=== PATIENT | female | born 1995 | race Caucasian/White ===

== ENCOUNTER 2019-11-30 11:48 | Emergency (ER) | payer OTHER ==
[~2019-11-30] VITALS: Ht 154.9 cm; Wt 59.0 kg
[2019-11-30] MEDS: ALBUTEROL/IPRATROPIUM 3 ML NEB NEB ONE (12:40)
[2019-11-30] MEDS: PREDNISONE 20 MG TAB PO ONE (12:42)
--- NOTE | 2019-11-30 12:46 | Diagnostic Imaging Report ---
EXAMINATION: PA and lateral views of the chest. COMPARISON: None CLINICAL HISTORY: Cough, shortness of breath DISCUSSION: Lines/tubes: None. Lungs: The lungs are well inflated and clear. There is no evidence of pneumonia or pulmonary edema. Pleura: There is no pleural effusion or pneumothorax. Heart and mediastinum: Cardiomediastinal silhouette is unremarkable. Pulmonary vasculature is normal. Bones and soft tissues: No acute bony abnormalities. IMPRESSION: No acute cardiopulmonary abnormalities. Signed by: Dr. Giuliano Hansen M.D. on 11/30/2019 12:43 PM
[2019-11-30 13:21] VITALS: BP 107/72
== END 2019-11-30 13:30 | disposition home or self-care (01) ==
LOC: ER 11:48
DX: R06.00 Dyspnea, unspecified (principal); R05 Cough; J20.9 Acute bronchitis, unspecified; Z87.01 Personal history of pneumonia (recurrent); F17.290 Nicotine dependence, other tobacco product, uncomplicated
CPT/HCPCS: 71046; 99283; J7512

== ENCOUNTER 2020-05-24 09:36 | Inpatient (IN) | payer OTHER ==
[~2020-05-24] VITALS: Ht 154.9 cm; Wt 68.0 kg
[2020-05-24] MEDS ORDERED: METHYLPREDNISOLONE SOD SUCC 125 MG/2ML VIAL IV STA (09:37)
[2020-05-24] MEDS ORDERED: SODIUM CHLORIDE 0.9% 1000ML 1,000 ML IV STA ×3 (09:37→18:09)
--- OUTSIDE RECORDS SUMMARY | 2020-05-24 09:42 | XMS REPORT | Continuity of Care Document ---
Author Author [facility] [place] [place] Organization [facility] [place] [place] Address [address] [place] [address] 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 Allergies, Adverse Reactions, Alerts This patient has no known allergies or adverse reactions. Medications This patient has no known medications. Procedures Procedure Date / Time Performed Performing Clinician [facility] e X-ray of chest, two views 2019-11-30 00:00:00 LUIS A PALENCIA CH I [facility] Encounters Start Date/Time End Date/Time Encounter Type Admission Type Attendi [facility] Facility Care Department Encounter ID Source 2019-11-30 11:48:00 2019-11-30 13:30:00 Departed Emergency Room 1 LUIS A PALENCIA [facility] [id number] [facility] Results Test Description Test Time Test Comments Results Result Comments Source CHEST 2 VIEWS 2019-11-30 12:41:00 [facility] [address] [place], [place] [address] Patient Name: GERARDO AGUILAR MR #: [id number] : 1995 Age/Sex: 24/F Req #: [id number] Adm Physician: Ordered by: LUIS A PALENCIA MD Report #: [id number] Location: ER Room/Bed: Procedure: [id number] DX/CHEST 2 VIEWS Exam Date: Exam Time: REPORT STATUS: Signed EXAMINATION: PA and lateral views of the chest. COMPARISON: None CLINICAL HISTORY: Cough, shortness of breath DISCUSSION: Lines/tubes: None. Lungs: The lungs are well inflated and clear. There is no evidence of pneumonia or pulmonary edema. Pleura: There is no pleural effusion or pneumothorax. Heart and mediastinum: Cardiomediastinal silhouette is unremarkable. Pulmonary vasculature is normal. Bones and soft tissues: No acute bony abnormalities. IMPRESSION: No acute cardiopulmonary abnormalities. Signed by: Dr. Apolinar Hansen M.D. on 11/30/2019 12:43 PM Dictated By: APOLINAR HANSEN MD [id number] Transcribed By: JULIANNA on 11/30/19 1243 COPY TO: LUIS A PALENCIA MD
[2020-05-24] MEDS ORDERED: ALBUTEROL/IPRATROPIUM 3 ML NEB NEB ONE (09:45)
[2020-05-24 10:12] LABS: BASOPHILS # (AUTO) 0.1 (0.0-0.1); BASOPHILS % 0.3 % (0.0-1.0); EOSINOPHILS # (AUTO) 9.1 (0.0-0.4); EOSINOPHILS % 31.1 % (0.0-6.0); HEMOGLOBIN 14.6 g/dL (12.0-16.0); LYMPHOCYTES # (AUTO) 1.4 (1.0-3.2); LYMPHOCYTES % 4.6 % (18.0-39.1); MEAN CORPUSCULAR HEMOGLOBIN 31.1 pg (28-32); MEAN CORPUSCULAR VOLUME 91.5 fL (81-99); MONOCYTES # (AUTO) 1.1 (0.2-0.8); MONOCYTES % 3.9 % (4.4-11.3); NEUTROPHILS # (AUTO) 17.5 (2.1-6.9); NEUTROPHILS % 59.6 % (38.7-80.0); PLATELET COUNT 355 x10e3/uL (140-360); RED CELL DISTRIBUTION WIDTH 12.9 % (11.7-14.4)
--- NOTE | 2020-05-24 10:24 | Emergency Department Note ---
History of Present Illnes History of Present Illness Chief Complaint: COVID PUI History of Present Illness This is a 24 year old female SOB AND COUGHING SINCE YESTERDAY. SEEN YESTERDAY AT URGENT CARE AND GIVEN PREDNISONE AND INHALER. PT STATES GETTING WORSE. PT AAOX4. AMBULATORY. SMOKER 1/2 PER WK. PT DENIES COVID TESTING. Historian: Patient, Family Member Arrival Mode: Car Lye Treater Required: No Onset (how long ago): day(s) (1) Radiation: Reports non-radiation Severity: moderate Onset quality: gradual Timing of current episode: constant Progression: worsening Chronicity: recurrent Context: Denies recent illness Relieving factors: none Exacerbating factors: none Associated symptoms: Reports denies other symptoms Treatments prior to arrival: none Past Medical/Family History Physician Review I have reviewed the patient's past medical and family history. Any updates have been documented here. Past Medical History Recent Fever: No Clinical Suspicion of Infectio: Yes New/Unexplained Change in Ment: No Past Medical History: Asthma Other Medical History: G-2, P-1, A-0 pneumonia Past Surgical History: None Social History Smoking Cessation: Current some day smoker Counseling Performed: Yes Alcohol Use: None Any Illegal Drug Use: No TB Exposure/Symptoms: No Physically hurt or threatened: No Family History Family history of heart diseas: No Other Last Tetanus: UNK Any Pre-Existing Lines (PICC,: No Review of Systems Review of Systems Constitutional: Reports no symptoms EENTM: Reports no symptoms Cardiovascular: Reports no symptoms Respiratory: Reports as per HPI, Reports chest congestion, Reports cough, Reports dyspnea Gastrointestinal: Reports no symptoms Genitourinary: Reports no symptoms Musculoskeletal: Reports no symptoms Integumentary: Reports no symptoms Neurological: Reports no symptoms Psychological: Reports no symptoms Endocrine: Reports no symptoms Hematological/Lymphatic: Reports no symptoms Physical Exam Related Data Allergies: Coded Allergies: No Known Allergies (Unverified , 03/08/13) Triage Vital Signs Vital Signs Date Time Temp Pulse Resp B/P (MAP) Pulse Ox O2 Delivery O2 Flow Rate FiO2 05/24/20 09:35 96 23 96 05/24/20 09:37 97.2 127/77 Room Air 05/24/20 10:04 2.0 Vital signs reviewed: Yes Physical Exam CONSTITUTIONAL Constitutional: Present well-developed, Present well-nourished, Present distressed HENT HENT: Present normocephalic, Present atraumatic, Present oropharynx clear/moist, Present nose normal HENT L/R: Present left ext ear normal, Present right ext ear normal EYES Eyes: Reports PERRL, Reports conjunctivae normal NECK Neck: Present ROM normal PULMONARY Pulmonary: Present respiratory distress (MILD, WITH TACHYPNEA AND INCREASED WORK OF BREATHING), Present other (BILATERAL DIFFUSE EXP WHEEZES); Absent chest tenderness CARDIOVASCULAR Cardiovascular: Present regular rhythm, Present heart sounds normal, Present capillary refill normal, Present normal rate GASTROINTESTINAL Abdominal: Present soft, Present nontender, Present bowel sounds normal GENITOURINARY Genitourinary: Present exam deferred SKIN Skin: Present warm, Present dry MUSCULOSKELETAL Musculoskeletal: Present ROM normal; Absent edema NEUROLOGICAL Neurological: Present alert, Present oriented x 3, Present no gross motor or sensory deficits PSYCHOLOGICAL Psychological: Present mood/affect normal, Present judgement normal Results Laboratory Result Diagram: 05/24/20 0956 Laboratory Laboratory Tests Test 05/24/20 09:56 White Blood Count 29.34 x10e3/uL (4.8-10.8) Red Blood Count 4.70 x10e6/uL (3.6-5.1) Hemoglobin 14.6 g/dL (12.0-16.0) Hematocrit 43.0 % (34.2-44.1) Mean Corpuscular Volume 91.5 fL (81-99) Mean Corpuscular Hemoglobin 31.1 pg (28-32) Mean Corpuscular Hemoglobin Concent 34.0 g/dL (31-35) Red Cell Distribution Width 12.9 % (11.7-14.4) Platelet Count 355 x10e3/uL (140-360) Neutrophils (%) (Auto) 59.6 % (38.7-80.0) Lymphocytes (%) (Auto) 4.6 % (18.0-39.1) Monocytes (%) (Auto) 3.9 % (4.4-11.3) Eosinophils (%) (Auto) 31.1 % (0.0-6.0) Basophils (%) (Auto) 0.3 % (0.0-1.0) Neutrophils # (Auto) 17.5 (2.1-6.9) Lymphocytes # (Auto) 1.4 (1.0-3.2) Monocytes # (Auto) 1.1 (0.2-0.8) Eosinophils # (Auto) 9.1 (0.0-0.4) Basophils # (Auto) 0.1 (0.0-0.1) Absolute Immature Granulocyte (auto 0.16 x10e3/uL (0-0.1) Lab results reviewed: Yes Imaging Imaging results reviewed: Yes Critical Care Time Total Critical Care Time (min): 30 Critcal care necessary due to: respiratory failure Critcal care time spent by me: discussion w primary provider, order/perform tx or interventions, order/review laboratory studies, order/review radiographic studies, pulse oximetry, re-evaluation of patient condition Assessment & Plan Medical Decision Making MDM 24 Y/O FEMALE WITH H/O ASTHMA, SOB/COUGH SINCE YESTERDAY, MILD RESP DISTRESS AND DIFFUSE WHEEZING - CBC, CHEM, CARDIACS, PREG TEST, BLOOD CX'S, LACTIC, CXR, COVID SWAB - EVAL FOR PNEUMONIA, BRONCHITIS, ASTHMA EXACERBATION, SEPSIS. Reassessment Reassessment WBC ALMOST 30K @ 1020 - IV ABX'S ORDERED, ROCEPHIN & AZITHRO, LACTIC PENDING LAB CALLED - INITIAL LACTIC HIGH BUT HEMOLYZED - WE SENT REPEAT AND IT WAS 3.1 BUT ALSO HAD SLIGHT HEMOLYSIS LIKELY SOURCE LUNGS - BRONCHITIS VS EARLY PNEUMONIA 2 L NS BOLUS, IV ABX'S AND REPEAT LACTIC 2 SIRS CRITERIA OF WBC>12K AND RESP RATE >20 Assessment & Plan Final Impression: (1) Sepsis (2) Leukocytosis (3) Bronchitis (4) Asthma exacerbation Depart Disposition: ADMITTED Last Vital Signs Date Time Temp Pulse Resp B/P (MAP) Pulse Ox O2 Delivery O2 Flow Rate FiO2 05/24/20 10:04 120 24 100 Nasal Cannula 2.0 05/24/20 09:37 97.2 Home Meds No Active Prescriptions or Reported Meds Medications in the ED Methylprednisolone Sodium Succinate 125 mg ONCE STAT IV Last administered on 05/24/20at 10:18; Admin Dose 125 MG; Start 05/24/20 at 09:37; Stop 05/24/20 at 09 :41; Status DC Sodium Chloride 1,000 ml @ 0 mls/hr Q0M STAT IV Last administered on 05/24/20at 10:18; Admin Dose 1,000 MLS/HR; Start 05/24/20 at 09:37; Stop 05/24/20 at 09:41; Status DC Albuterol/ Ipratropium 6 ml ONCE ONCE NEB Last administered on 05/24/20at 09:35; Admin Dose 6 ML; Start 05/24/20 at 09:45; Stop 05/24/20 at 09:46; Status DC LUIS A PALENCIA MD May 24, 2020 10:24
[2020-05-24] MEDS ORDERED: CEFTRIAXONE SOD 1 GM/NS 50 ML 50 ML IV SCH (10:30)
[2020-05-24] MEDS ORDERED: AZITHROMYCIN 500MG/NS 250 ML 250 ML IV SCH (10:30)
[2020-05-24 10:33] LABS: ALANINE AMINOTRANSFERASE 55 IU/L (0-55); ALBUMIN 4.6 g/dL (3.5-5.0); ALBUMIN/GLOBULIN RATIO 1.6 (0.8-2.0); ALKALINE PHOSPHATASE 85 IU/L (40-150); ANION GAP 19.7 mmol/L (8-16); BLOOD UREA NITROGEN 19 mg/dL (7-26); BUN/CREATININE RATIO 24 (6-25); CALCIUM 9.2 mg/dL (8.4-10.2); CARBON DIOXIDE 15 mmol/L (22-29); CHLORIDE 108 mmol/L (98-107); CREATINE KINASE 104 IU/L (29-168); CREATININE, SERUM 0.78 mg/dL (0.57-1.11); EST GLOMERULAR FILTRATION RATE > 60 ML/MIN (60-); GLUCOSE 112 mg/dL (74-118); POTASSIUM 3.7 mmol/L (3.5-5.1); SODIUM 139 mmol/L (136-145)
--- NOTE | 2020-05-24 10:41 | NUR ---
LACTIC RE-DRAWN D/T "GROSS HEMOLYZATION" PER LAB. NO OTHER LABS HEMOLYZED AT ALL PER LAB...
[2020-05-24 10:44] LABS: INR 0.94; PARTIAL THROMBOPLASTIN TIME 31.8 seconds (23.8-35.5)
--- NOTE | 2020-05-24 10:45 | NUR ---
Lactic acid redrawn at this time
--- NOTE | 2020-05-24 11:01 | NUR ---
Dr. Lagunas made aware that patient became short of breath when she got up to go to the bathroom
[2020-05-24 11:11] LABS: CLARITY,URINE SL CLOUDY (CLEAR); COLOR,URINE YELLOW (YELLOW)
[2020-05-24 11:12] LABS: BILIRUBIN,URINE NEGATIVE (NEGATIVE); KETONES,URINE NEGATIVE (NEGATIVE); LEUKOCYTE ESTERASE ,URINE NEGATIVE (NEGATIVE); NITRITE,URINE NEGATIVE (NEGATIVE); PROTEIN,URINE DIPSTICK NEGATIVE (NEGATIVE); URINE UROBILINOGEN 0.2 mg/dL (0.2 - 1)
--- NOTE | 2020-05-24 11:25 | Diagnostic Imaging Report ---
EXAMINATION: CHEST SINGLE (PORTABLE) INDICATION: COUGH, SOB, ASTHMA COMPARISON: Chest x-ray dated 11/30/2019. FINDINGS: AP view TUBES and LINES: None. . LUNGS/PLEURA: Lungs are well inflated. There is no evidence of pneumonia or pulmonary edema.. There is no pleural effusion or pneumothorax. HEART AND MEDIASTINUM: The cardiomediastinal silhouette is unremarkable. BONES AND SOFT TISSUES: No acute osseous lesion. Soft tissues are unremarkable. UPPER ABDOMEN: No free air under the diaphragm. IMPRESSION: No acute thoracic abnormality. Signed by: Yonathan Osei MD on 05/24/2020 11:21 AM
[2020-05-24] MEDS ORDERED: ALBUTEROL/IPRATROPIUM 3 ML NEB NEB PRN (11:30)
[2020-05-24] MEDS ORDERED: SODIUM CHLORIDE 0.9% 1000ML 1,000 ML IV SCH (11:30)
[2020-05-24] MEDS: ALBUTEROL SULF 0.083% NEB SOLN 3 ML NEB NEB SCH ×2 (11:45→14:15)
[2020-05-24 11:49] LABS: BACTERIA,URINE RARE /HPF; EPITHELIAL CELLS,URINE FEW /LPF; RBC,URINE 0-5 /HPF (0-5); WBC,URINE (MAN) 0-5 /HPF (0-5)
[2020-05-24] MEDS ORDERED: PROAIR HFA INH8.5 GM INH (12:51)
[2020-05-24] MEDS ORDERED: SYMBICORT 16010.2 GM INH (12:51)
[2020-05-24 12:55] VITALS: BP 120/64
[2020-05-24] MEDS ORDERED: IPRATROPIUM BROMIDE 0.02% 2.5 ML NEB NEB SCH (13:00)
[2020-05-24 13:02] VITALS: BP 120/64
[2020-05-24] MEDS ORDERED: METHYLPREDNISOLO4 M1 PO (13:20)
[2020-05-24] MEDS ORDERED: DOCUSATE SODIUM 100 MG CAP PO PRN (14:15)
[2020-05-24] MEDS ORDERED: TRAMADOL HCL 50 MG TAB PO PRN ×2 (14:15→16:30)
[2020-05-24 16:00] VITALS: BP 114/59
[2020-05-24] MEDS ORDERED: GUAIFENESIN/CODEINE 10 ML CUP PO PRN (16:15)
[2020-05-24] MEDS ORDERED: BENZONATATE 100 MG CAP PO PRN (16:15)
[2020-05-24] MEDS: METHYLPREDNISOLONE SOD SUCC 40 MG/ML VIAL 1ML IV SCH ×2 (16:22→22:41)
[2020-05-24 16:44] LABS: BASOPHILS % 0.2 % (0.0-1.0); HEMATOCRIT 39.2 % (34.2-44.1); HEMOGLOBIN 12.8 g/dL (12.0-16.0); LYMPHOCYTES # (AUTO) 0.3 (1.0-3.2); LYMPHOCYTES % 1.1 % (18.0-39.1); MEAN CORPUSCULAR HEMOGLOBIN 30.8 pg (28-32); MEAN CORPUSCULAR HGB CONC 32.7 g/dL (31-35); MONOCYTES # (AUTO) 0.1 (0.2-0.8); MONOCYTES % 0.3 % (4.4-11.3); NEUTROPHILS # (AUTO) 22.5 (2.1-6.9); NEUTROPHILS % 97.8 % (38.7-80.0); RED BLOOD COUNT 4.15 x10e6/uL (3.6-5.1); RED CELL DISTRIBUTION WIDTH 13.1 % (11.7-14.4)
[2020-05-24 16:46] LABS: MEAN CORPUSCULAR VOLUME 94.5 fL (81-99); PLATELET COUNT 322 x10e3/uL (140-360)
[2020-05-24] MEDS ORDERED: FAMOTIDINE 20 MG/2 ML VIAL IV SCH (17:00)
[2020-05-24] MEDS ORDERED: ENOXAPARIN SOD INJ 40 MG/0.4 ML SYR SC SCH (17:00)
[2020-05-24 17:05] LABS: ALANINE AMINOTRANSFERASE 47 IU/L (0-55); ALBUMIN 4.3 g/dL (3.5-5.0); ALBUMIN/GLOBULIN RATIO 1.9 (0.8-2.0); ALKALINE PHOSPHATASE 75 IU/L (40-150); ANION GAP 17.8 mmol/L (8-16); BLOOD UREA NITROGEN 11 mg/dL (7-26); BUN/CREATININE RATIO 15 (6-25); CALCIUM 8.4 mg/dL (8.4-10.2); CARBON DIOXIDE 15 mmol/L (22-29); CHLORIDE 113 mmol/L (98-107); CREATININE, SERUM 0.75 mg/dL (0.57-1.11); EST GLOMERULAR FILTRATION RATE > 60 ML/MIN (60-); GLUCOSE 139 mg/dL (74-118); POTASSIUM 3.8 mmol/L (3.5-5.1); SODIUM 142 mmol/L (136-145)
--- NOTE | 2020-05-24 18:21 | Consultation ---
DATE OF CONSULTATION: Pulmonary Critical Care Consultation CHIEF COMPLAINT: Wheezing and cough. HISTORY OF PRESENT ILLNESS: The patient is a 24-year-old woman. She has a history of recurrent asthma-like problems. She was previously on Symbicort, but recently has just been using a rescue inhaler. She reports difficulty breathing with cough and wheezing over several days. She has no fevers. She has no sinus congestion. She has no nausea or vomiting. The patient came to the hospital. She received some Solu-Medrol along with oxygen and bronchodilators, and she feels better. The emergency department was concerned because of her elevated white blood cell count of 29. PAST MEDICAL HISTORY: Asthma-like syndrome as noted above. PAST SURGICAL HISTORY: Noncontributory. ALLERGIES: NO KNOWN DRUG ALLERGIES. SOCIAL HISTORY: The patient smokes about half a pack of cigarettes a week. She is an occasional drinker couple times a week. REVIEW OF SYSTEMS: The patient denies any fever. She has no headache. There is no sinus congestion. She has no neck pain. She has no sore throat. She had some coughing and some wheezing, although this has improved. She has no chest pain. She has no nausea or vomiting. She has no leg edema. PHYSICAL EXAMINATION: VITAL SIGNS: The blood pressure is now 122/77 and the pulse is 90 to 100. Respiratory rate is normal and the saturation is 98% on 2 L. HEENT: Shows no facial swelling or erythema. LYMPHATIC: Shows no submandibular, cervical, or supraclavicular adenopathy. Oropharynx is normal. CARDIAC: Reveals regular rate and rhythm with normal S1 and S2. LUNGS: Auscultation of lungs reveals wheezing bilaterally. There is a prolonged expiratory phase. ABDOMEN: Soft and nontender. There is no rebound or guarding. EXTREMITIES: Show no leg edema or calf tenderness. There is no cyanosis or clubbing. SKIN: Shows no rashes. NEUROLOGICAL: Shows no focal abnormalities. LABORATORY DATA: Carbon dioxide is 15 with a sodium of 139, a potassium of 3.7 and a chloride of 108. Anion gap is 19. Lactic acid is mildly elevated at 3.1. White blood cell count was 29.3 and the hemoglobin is 14.6. The platelet count is 355. RADIOGRAPHIC DATA: Chest x-ray shows no active disease. IMPRESSION: 1. Asthma with acute exacerbation. 2. Leukocytosis of unclear etiology. 3. Metabolic acidosis. PLAN: 1. Repeat CBC and CMP now. Hopefully, the leukocytosis has improved. 2. Continue Solu-Medrol for now. If the patient goes home, she should be on a steroid taper. 3. The patient can be discharged home. She should have a maintenance inhaler such as Symbicort or another inhaled corticosteroid twice a day. 4. The patient should use the nebulizers or albuterol rescue inhaler as needed. 5. Control gastroesophageal reflux, which could be worsening asthma-like symptoms. Kameron Randhawa MD [facility] /[id number]
[2020-05-24 18:48] LABS: LYMPHOCYTES % (MANUAL) 2 % (19-48); NEUTROPHILS % (MANUAL) 98 % (40-74); PLATELET ESTIMATE ADEQUATE; PLATELET MORPHOLOGY COMMENT NORMAL
[2020-05-24 18:49] LABS: RBC MORPHOLOGY COMMENT NORMAL
--- NOTE | 2020-05-24 19:19 | NUR ---
BEDSIDE SHIFT REPORT GIVEN TO ONCOMING NURSE. PATIENT IS RESTING IN BED, NO ACUTE DISTRESS NOTED. CALL LIGHT WITHIN REACH. BED IN THE LOWEST POSITION. NIGHT NURSE NOTIFIED THAT LACTIC ACID NEEDS TO BE DRAWN AT [address] IKNG WITH RESULTS.
[2020-05-24 20:00] VITALS: BP 120/69
[2020-05-24] MEDS ORDERED: METHYLPREDNISOLONE SOD SUCC 40 MG/ML VIAL 1ML IV SCH ×2 (21:00)
[2020-05-24] MEDS ORDERED: MELATONIN 5 MG TABLET PO PRN (21:00)
--- NOTE | 2020-05-24 22:52 | History and Physical ---
CHIEF COMPLAINT: Shortness of breath. HISTORY OF PRESENT ILLNESS: This is a 24-year-old female, chronic smoker, who has been smoking for more than 14 years, two packs per day, recently started gone to half-a-pack a day for the last six months, reports has a history of asthma, comes into the ED with complaints of shortness of breath, cough, and congestion. The patient apparently had these symptoms that began yesterday morning when she woke up and she went to a local urgent care, was given some steroids and some antibiotics and discharged home. The patient was given hydrocortisone injection at the Urgent Care. The patient went home and progressively got worse, came into [facility] ER for further evaluation and management. While here, the patient was tachypneic, short of breath and is currently on nasal cannula. The patient was given some steroids and found to have a white count of 29, and started on antibiotics as well. The patient seen and evaluated at bedside on the medical floor with the nursing staff. Currently, she is doing well with no other issues at this time. REVIEW OF SYSTEMS: Pertinent positive; shortness of breath, cough, congestion, and wheezing. The rest of 14-point review of systems have been reviewed with the patient and are negative. ALLERGIES: NO KNOWN DRUG ALLERGIES. HOME MEDICATIONS: Takes Symbicort and albuterol. PAST MEDICAL HISTORY: Asthma. PAST SURGICAL HISTORY: Reports none. FAMILY HISTORY: Hypertension and diabetes. SOCIAL HISTORY: She used to be a smoker, two packs per day for the last six months. Now, she is half-a-pack a day. No drugs or any alcohol. Has children. She works. PHYSICAL EXAMINATION: VITAL SIGNS: Temperature is 98.1, pulse is 114, respiratory rate 22, pulse ox is 96%. She is on 2 L nasal cannula, blood pressure was 127/77. GENERAL: In not in acute distress. Alert and oriented x3. She is cooperative on examination. HEENT: Normocephalic, atraumatic. Eyes; pupils are reactive to light bilaterally. Extraocular movements are intact bilaterally. PULMONARY: She has expiratory wheezing appreciated. She has decreased inspiratory effort. There is no crackles, no rhonchi. CARDIOVASCULAR: Positive S1, S2. No murmurs, rubs, or gallops appreciated. ABDOMEN: Soft, nondistended, nontender to palpation. Bowel sounds present. MUSCULOSKELETAL: Strength 5/5 throughout. . No evidence of muscle deficits on examination. No weakness appreciated. NEUROLOGICAL: Cranial nerves II through XII grossly intact. No evidence of any neurological deficits on exam. SKIN: Intact. Warm to touch. Good cap refill. PSYCHIATRIC: Normal affect and mood. EXTREMITIES: No edema. Good range of motion throughout. LABORATORY DATA: Labs show white count 29, hemoglobin is 14, hematocrit is 43, platelets of 355. Coagulation; PT 13, INR 0.94, PTT 31. Chemistry; sodium 139, potassium 3.7, chloride 108, bicarb is 15, anion gap of 19, BUN is 19 and creatinine 0.78, glucose is 112, lactic acid 3.1, calcium is 9.2. LFTs within normal range. Troponins were negative. BNP is 18, albumin is 4.6. Beta hCG was negative. Urinalysis negative. Serology; coronavirus not detected. Microbiology; blood and urine cultures are pending. IMAGING STUDIES: Chest x-ray shows no acute thoracic abnormality. IMPRESSION: 1. Asthma exacerbation. 2. Chronic smoker. 3. Wheezing with underlying shortness of breath. PLAN: At this time, the patient will be on IV steroids of 40 mg IV q.8, nebulizing treatments including inhalers. I did consult with Pulmonary as well. Continue with IV antibiotic therapy. She will be on a heart healthy diet. Lovenox for DVT prophylaxis. The patient is not ready for discharge at this time despite I did talk with her that she will need several days. She reports that she may leave against medical advice, which I do not recommend at all due to her underlying wheezing and her underlying shortness of breath. There are blood and urine cultures collected and she is on IV antibiotic therapy, which we will continue to monitor very closely. Discussed plan of care with the patient and nursing staff. MD REILLY Prajapati/MELISSA /[id number]
[2020-05-25] VITALS: BP 116/65
--- NOTE | 2020-05-25 | NUR ---
Patient voiced that she wants to leave the hospital to take care of some famly responsibilities. Patient was educated on the risks of leaving the hospital without medical clearance. patient verbalized understanding. Another RN Bety was present to reinforced and witness the education of the importance of patient staying to complete medical treatment and the risks involved in leaving against medical advise. Dr. Duarte was made aware, iv access was removed and patient left unit at 0018. Vitals was stable, patient was not in acute distress and patient was encourage to call 911 if condition changes. corduroy cutting supervisor was made aware.
--- NOTE | 2020-05-26 10:34 | Discharge Summary ---
The patient left against medical advice. FINAL DISCHARGE DIAGNOSES: 1. Acute asthma exacerbation. 2. Chronic smoker. 3. Wheezing with underlying shortness of breath. 4. Leukocytosis. DB2 DEVELOPER: Pulmonary. VITAL SIGNS: Temperature is 98.4, pulse 99, respiratory rate is 19, blood pressure 116/56, and pulse ox 98% on room air. LABORATORY DATA: Labs show white count 22, hemoglobin 12, hematocrit is 39, and platelets of 322. Chemistry; sodium 142, potassium is 3.8, chloride 113, bicarb 15, anion gap of 17, creatinine is 0.75, BUN 11, glucose 139. Lactic acid 2.3. LFTs within normal range. Troponin was negative. BNP 18. Albumin is 4.3. Beta-hCG negative. Urinalysis negative. Coronavirus not detected. MICROBIOLOGY: Blood cultures and urine cultures collected. IMAGING STUDIES: Chest x-ray, no acute findings. HOSPITAL COURSE: A 24-year-old female, came into the ED with complaints of shortness of breath and was being treated for underlying asthma exacerbation. The patient was recently seen at the Urgent Care, but due to worsening symptoms, she came into the [facility] ER for further evaluation and management. While here, the patient was given steroids, neb treatments, antibiotics. The patient left against medical advice on the day of admission. The patient was found to have lactic acidosis and concerning for underlying sepsis. She was having some wheezing and rhonchi on examination, but she still continues to refuse and wants to be discharged. The patient was alert, awake, and oriented x4 with no complications. In fact, the nursing staff also spoke with the patient and she verbalized that she wants to leave. The patient left against medical advice. She signed appropriate documentation for discharge. Risks were discussed with the patient at bedside and despite that, she still understood and she wants to leave against medical advice. On the day of discharge, vital signs were stable, labs reviewed and stable. The patient is seen and evaluated and examined thoroughly on the day of discharge with no other complaints. The patient verbalized understanding and agrees to plan of care to come back to the ER for any worsening issues. MEDICATIONS: See med reconciliation form. DISPOSITION: Left against medical advice. CONDITION: Left against medical advice. In the event of any worsening symptoms, the patient was advised to come back to the ED for further evaluation. Once again, the patient left against medical advice despite we discussed the risks involved in leaving against medical advice. Despite all that, she still wants to go home. She signed appropriate documentation. The patient left against medical advice. MD REILLY Prajapati/MELISSA /[id number]
== END 2020-05-25 01:01 | disposition left against medical advice (07) | DRG 872 ==
LOC: ER 09:40 → ERHOLD 11:33 → MED/SURG3 12:23
PROVIDERS: ADMIT Internal Medicine; ATTEND Internal Medicine
DX: A41.9 Sepsis, unspecified organism (principal); J45.901 Unspecified asthma with (acute) exacerbation; E87.2 Acidosis; F17.210 Nicotine dependence, cigarettes, uncomplicated; Z11.59 Encounter for screening for other viral diseases
CPT/HCPCS: 36415; 71045; 80053; 81001; 82550; 82553; 83605; 83880; 84484; 84702; 85025; 85610; 85730; 87040; 87086; 94640; 99284; J0456; J0696; J1650; J2920; J2930; J7030; U0002

== ENCOUNTER 2024-03-16 11:39 | Emergency (ER) | payer OTHER ==
[~2024-03-16] VITALS: Ht 154.9 cm; Wt 72.6 kg
[~2024-03-16 11:39] MED LIST: METHYLPREDNISOLO4 M1 PO; PROAIR HFA INH8.5 GM INH; SYMBICORT 16010.2 GM INH
[2024-03-16 11:43] VITALS: TEMP 99
[2024-03-16] MEDS: DEXAMETHASONE 4 MG TAB PO STA (11:55)
[2024-03-16 12:10] VITALS: PULSE 85; RESP 20
[2024-03-16] MEDS: ALBUTEROL/IPRATROPIUM 3 ML NEB NEB ONE (12:10)
[2024-03-16 13:00] VITALS: PULSE 82; RESP 16; O2SAT 99
[2024-03-16] MEDS ORDERED: DEXAMETHASONE4 MG PO (13:03)
== END 2024-03-16 13:29 | disposition home or self-care (01) ==
LOC: ER 11:41
DX: R06.02 Shortness of breath (principal); J45.901 Unspecified asthma with (acute) exacerbation; R05.9 Cough, unspecified
CPT/HCPCS: 99283; J8540

== ENCOUNTER 2024-08-14 17:17 | Inpatient (IN) | payer MEDICARE, OTHER ==
[~2024-08-14] VITALS: Ht 154.9 cm; Wt 72.6 kg
[~2024-08-14 17:17] MED LIST changes: +DEXAMETHASONE4 MG PO
[2024-08-14 18:11] LABS: CORONAVIRUS COVID-19 AG NEGATIVE (NEGATIVE); INFLUENZA A AG NEGATIVE (NEGATIVE); INFLUENZA B AG NEGATIVE (NEGATIVE)
[2024-08-14 18:20] LABS: BASOPHILS # (AUTO) 0.1 (0.0-0.1); BASOPHILS % 0.6 % (0.0-1.0); EOSINOPHILS # (AUTO) 0.6 (0.0-0.4); HEMOGLOBIN 15.1 g/dL (12.0-16.0); LYMPHOCYTES # (AUTO) 0.7 (1.0-3.2); LYMPHOCYTES % 5.4 % (18.0-39.1); MEAN CORPUSCULAR HEMOGLOBIN 31.3 pg (28-32); MEAN CORPUSCULAR HGB CONC 33.6 g/dL (31-35); MEAN CORPUSCULAR VOLUME 93.2 fL (81-99); MONOCYTES # (AUTO) 0.9 (0.2-0.8); MONOCYTES % 7.2 % (4.4-11.3); NEUTROPHILS # (AUTO) 9.9 (2.1-6.9); NEUTROPHILS % 81.5 % (38.7-80.0); PLATELET COUNT 390 x10e3/uL (140-360); RED BLOOD COUNT 4.83 x10e6/uL (3.6-5.1); RED CELL DISTRIBUTION WIDTH 11.8 % (11.7-14.4); WHITE BLOOD COUNT 12.12 x10e3/uL (4.8-10.8)
[2024-08-14] MEDS: SODIUM CHLORIDE 0.9% 1000ML 1,000 ML IV STA ×2 (18:29→18:30)
[2024-08-14] MEDS: ONDANSETRON HCL INJ 2MG/ML 2ML 2 MG/ML VIAL IV STA (18:29)
[2024-08-14] MEDS: KETOROLAC TROMETHAMINE 30 MG/ML VIAL IV STA (18:29)
[2024-08-14] MEDS: METHYLPREDNISOLONE SOD SUCC 125 MG/2ML VIAL IV STA (18:30)
[2024-08-14] MEDS: ACETAMINOPHEN 325 MG TAB PO ONE (18:30)
[2024-08-14 18:36] LABS: ALANINE AMINOTRANSFERASE 24 IU/L (0-55); ALBUMIN 4.3 g/dL (3.5-5.0); ALBUMIN/GLOBULIN RATIO 1.3 (0.8-2.0); ALKALINE PHOSPHATASE 101 IU/L (40-150); ANION GAP 18.2 mmol/L (8-16); BILIRUBIN,TOTAL 0.6 mg/dL (0.2-1.2); BLOOD UREA NITROGEN 16 mg/dL (7-26); BUN/CREATININE RATIO 18 (6-25); CALCIUM 9.5 mg/dL (8.4-10.2); CARBON DIOXIDE 17 mmol/L (22-29); CHLORIDE 109 mmol/L (98-107); EST GLOMERULAR FILTRATION RATE 88 ML/MIN (>=60); GLUCOSE 102 mg/dL (74-118); POTASSIUM 4.2 mmol/L (3.5-5.1); SODIUM 140 mmol/L (136-145); TOTAL PROTEIN 7.5 g/dL (6.5-8.1)
[2024-08-14] MEDS: ALBUTEROL/IPRATROPIUM 3 ML NEB NEB STA (18:44)
[2024-08-14 18:45] VITALS: PULSE 137; RESP 20; O2SAT 95
[2024-08-14] MEDS ORDERED: IOPAMIDOL 370 MG/ML 100 ML INFUS..BTL INJ ONE (18:48)
[2024-08-14] MEDS: SODIUM CHLORIDE 0.9% 1000ML 2,000 ML IV STA (19:45)
[2024-08-14] MEDS ORDERED: SODIUM CHLORIDE 0.9% 1000ML 1,000 ML ONE (19:46)
[2024-08-14 21:16] VITALS: PULSE 107; RESP 15; TEMP 99
[2024-08-14 22:00] VITALS: BP 114/70; PULSE 107; RESP 18; TEMP 99; O2SAT 96
[2024-08-14] MEDS ORDERED: LABETALOL HCL 5 MG/ML 20ML VIAL IV PRN (23:30)
[2024-08-14] MEDS ORDERED: POLYETHYLENE GLYCOL 3350 17 GM PACK PO PRN (23:30)
[2024-08-14] MEDS ORDERED: ONDANSETRON HCL INJ 2MG/ML 2ML 2 MG/ML VIAL IV PRN (23:30)
[2024-08-14] MEDS ORDERED: MONTELUKAST SOD10 MG PO (23:37)
[2024-08-14 23:40] VITALS: BP 124/77; PULSE 106; RESP 21; TEMP 98.6; O2SAT 96
[2024-08-15] VITALS (12 sets, daily range): BP systolic 110–129; BP diastolic 68–80; PULSE 96–133; RESP 17–22; TEMP 98.4–100.9; O2SAT 95–97
[2024-08-15] MEDS ORDERED: CHOLESTYRAMINE 4 GM PACKET PO PRN
[2024-08-15] MEDS ORDERED: METHYLPREDNISOLONE SOD SUCC 40 MG/ML VIAL 1ML IV SCH
[2024-08-15] MEDS ORDERED: SYMBICORT 80-10.2 GM INH (00:17)
[2024-08-15] MEDS: METHYLPREDNISOLONE SOD SUCC 40 MG/ML VIAL 1ML IV SCH (00:39)
[2024-08-15] MEDS: SODIUM CHLORIDE 0.9% 1000ML 1,000 ML IV SCH (00:44)
[2024-08-15] MEDS: ALBUTEROL/IPRATROPIUM 3 ML NEB NEB PRN (01:05)
[2024-08-15] MEDS: BUDESONIDE/FORMOTEROL 80/4.5 MCG INHALER IH SCH (01:30)
[2024-08-15 06:35] LABS: MAGNESIUM 1.7 MG/DL (1.3-2.1); PHOSPHORUS 2.3 MG/DL (2.3-4.7)
[2024-08-15 06:59] LABS: FREE T4 (FREE THYROXINE) 0.97 ng/dL (0.8-1.8); THYROID STIMULATING HORMONE 0.587 uIU/mL (0.350-4.940)
[2024-08-15] MEDS ORDERED: DOCUSATE SODIUM 100 MG CAP PO SCH (09:00)
[2024-08-15] MEDS: DOCUSATE SODIUM 100 MG CAP PO SCH (09:00)
[2024-08-15] MEDS: MONTELUKAST SODIUM 10 MG TAB PO SCH (10:42)
[2024-08-15] MEDS: MAGNESIUM SULF 1GRAM/DEXTROSE 100 ML IV ONE ×2 (10:43→15:25)
[2024-08-15] MEDS: ACETAMINOPHEN 325 MG TAB PO PRN (10:53)
[2024-08-15] MEDS: ALBUTEROL/IPRATROPIUM 3 ML NEB NEB SCH (10:57)
[2024-08-15] MEDS: ACETAMINOPHEN 325 MG TAB ONE (15:25)
[2024-08-15] MEDS: MONTELUKAST SODIUM 10 MG TAB ONE (15:25)
[2024-08-15] MEDS: SODIUM CHLORIDE 0.9% 1000ML 1,000 ML ONE (15:25)
[2024-08-15] MEDS: METHYLPREDNISOLONE SOD SUCC 40 MG/ML VIAL 1ML ONE (15:25)
[2024-08-15 15:36] LABS: CLARITY,URINE SL CLOUDY (CLEAR); COLOR,URINE YELLOW (YELLOW)
[2024-08-15 15:37] LABS: BILIRUBIN,URINE NEGATIVE (NEGATIVE); GLUCOSE, URINE NEGATIVE (NEGATIVE); KETONES,URINE TRACE (NEGATIVE); LEUKOCYTE ESTERASE ,URINE NEGATIVE (NEGATIVE); NITRITE,URINE NEGATIVE (NEGATIVE); PH,URINE 6.5 (5 - 7); PROTEIN,URINE DIPSTICK NEGATIVE (NEGATIVE); URINE UROBILINOGEN 0.2 mg/dL (0.2 - 1)
[2024-08-15 15:49] LABS: BACTERIA,URINE FEW /HPF; EPITHELIAL CELLS,URINE MODERATE /LPF
[2024-08-15] MEDS: LEVALBUTEROL HCL SOLN NEBU 0.63 MG/3 ML NEB INH SCH (16:03)
[2024-08-15] MEDS: BENZONATATE 100 MG CAP PO PRN (21:55)
[2024-08-15] MEDS: METOPROLOL TARTRATE INJ 1 MG/ML VIAL IV ONE (21:56)
[2024-08-16] VITALS (18 sets, daily range): BP systolic 97–130; BP diastolic 60–91; PULSE 86–127; RESP 18–28; TEMP 98.3–99.7; O2SAT 93–100
[2024-08-16] MEDS: ALBUTEROL/IPRATROPIUM 3 ML NEB NEB SCH (05:04)
[2024-08-16 06:28] LABS: EOSINOPHILS % 0.2 % (0.0-6.0); HEMATOCRIT 40.1 % (34.2-44.1); LYMPHOCYTES # (AUTO) 0.5 (1.0-3.2); LYMPHOCYTES % 4.7 % (18.0-39.1); MEAN CORPUSCULAR HEMOGLOBIN 31.4 pg (28-32); MEAN CORPUSCULAR HGB CONC 32.4 g/dL (31-35); MEAN CORPUSCULAR VOLUME 96.9 fL (81-99); MONOCYTES # (AUTO) 0.6 (0.2-0.8); MONOCYTES % 5.7 % (4.4-11.3); NEUTROPHILS # (AUTO) 9.8 (2.1-6.9); PLATELET COUNT 314 x10e3/uL (140-360); RED BLOOD COUNT 4.14 x10e6/uL (3.6-5.1); RED CELL DISTRIBUTION WIDTH 12.2 % (11.7-14.4); WHITE BLOOD COUNT 10.94 x10e3/uL (4.8-10.8)
[2024-08-16 06:48] LABS: ANION GAP 12.8 mmol/L (8-16); CALCIUM 8.7 mg/dL (8.4-10.2); CREATININE, SERUM 0.74 mg/dL (0.57-1.11); POTASSIUM 3.8 mmol/L (3.5-5.1)
[2024-08-16] MEDS: GUAIFENESIN/DEXTROMETHORPHAN LIQD 5 ML UDC NG PRN (09:05)
[2024-08-16 14:26] LABS: CDIFF AG QUIK CHEK NEGATIVE (NEGATIVE); CDIFF TOX QUIK CHEK NEGATIVE (NEGATIVE)
[2024-08-16] MEDS: SODIUM CHLORIDE 0.9% 250ML 250 ML ONE (16:46)
[2024-08-16] MEDS: METHYLPREDNISOLONE SOD SUCC 40 MG/ML VIAL 1ML IV SCH (20:33)
[2024-08-17] VITALS (11 sets, daily range): BP systolic 108–128; BP diastolic 59–92; PULSE 70–113; RESP 18–22; TEMP 97.3–99.3; O2SAT 94–100
[2024-08-18] VITALS (7 sets, daily range): BP systolic 106–124; BP diastolic 69–83; PULSE 98–119; RESP 18–21; TEMP 98–98.7; O2SAT 93–98
[2024-08-18 09:28] LABS: BASOPHILS % 0.2 % (0.0-1.0); HEMATOCRIT 41.8 % (34.2-44.1); HEMOGLOBIN 13.8 g/dL (12.0-16.0); LYMPHOCYTES # (AUTO) 1.1 (1.0-3.2); MEAN CORPUSCULAR HEMOGLOBIN 30.6 pg (28-32); MEAN CORPUSCULAR VOLUME 92.7 fL (81-99); MONOCYTES # (AUTO) 0.3 (0.2-0.8); MONOCYTES % 5.7 % (4.4-11.3); NEUTROPHILS # (AUTO) 4.4 (2.1-6.9); NEUTROPHILS % 75.6 % (38.7-80.0); PLATELET COUNT 287 x10e3/uL (140-360); RED BLOOD COUNT 4.51 x10e6/uL (3.6-5.1); RED CELL DISTRIBUTION WIDTH 12.2 % (11.7-14.4); WHITE BLOOD COUNT 5.84 x10e3/uL (4.8-10.8)
[2024-08-18] MEDS: PREDNISONE 20 MG TAB PO SCH (09:44)
[2024-08-18] MEDS ORDERED: ONDANSETRON ODT4 MG PO (11:26)
[2024-08-18] MEDS ORDERED: PANTOPRAZOLE SO40 MG PO (11:26)
[2024-08-18] MEDS ORDERED: ACETAMINOPHEN325 M1 PO (11:26)
[2024-08-18] MEDS ORDERED: PREDNISONE10 MG PO (11:26)
[2024-08-18] MEDS ORDERED: BENZONATATE100 MG PO (11:26)
== END 2024-08-18 12:36 | disposition home or self-care (01) | DRG 872 ==
LOC: ER 17:55 → MED/SURG3 20:41 → ER 21:30 → OBSVTOIN 08-15 19:40 → ICU 08-16 00:17 → MED/SURG3 08-16 13:53
PROVIDERS: ADMIT Internal Medicine; ATTEND Internal Medicine
PROC: 3E0333Z Introduction of Anti-inflammatory into Peripheral Vein, Percutaneous Approach (ICD-10-PCS; principal; 2024-08-14)
DX: A41.9 Sepsis, unspecified organism (principal); J45.901 Unspecified asthma with (acute) exacerbation; E87.20 Acidosis, unspecified; E86.0 Dehydration; R00.0 Tachycardia, unspecified; K52.9 Noninfective gastroenteritis and colitis, unspecified; R53.81 Other malaise; F32.9 Major depressive disorder, single episode, unspecified; Z11.52 Encounter for screening for COVID-19; Z87.891 Personal history of nicotine dependence; Z91.014 Allergy to mammalian meats; Z91.018 Allergy to other foods
CPT/HCPCS: 36415; 71046; 71260; 80048; 80053; 81001; 83605; 83630; 83735; 83993; 84100; 84439; 84443; 84702; 85025; 87040; 87324; 87449; 93005; 94640; 94799; 99252; 99284; G0378; J1885; J2405; J2470; J2543; J2919; J3475; J7030; J7050; J7512; Q9967